=== PATIENT | male | born 1960 | race Caucasian/White ===

== ENCOUNTER 2018-10-20 12:49 | Emergency (ER) | payer BC | END 2018-10-20 15:10 | disposition home or self-care (01) | LOC: ED 12:49 ==

== ENCOUNTER 2018-10-24 10:34 | Day surgery (SDC) | payer BC | END 2018-10-24 13:45 | disposition home or self-care (01) | LOC: SURG 10:34 ==

== ENCOUNTER 2018-10-27 17:22 | Emergency (ER) | payer BC | END 2018-10-27 19:20 | disposition home or self-care (01) | LOC: ED 17:22 ==